=== PATIENT | male | born 1990 | race Caucasian/White ===

== ENCOUNTER 2023-08-06 20:57 | Emergency (ER) | payer OTHER, SELFPAY ==
[2023-08-06 21:00] VITALS: BP 128/71; PULSE 88; RESP 16; TEMP 36.7; O2SAT 97; BMI 24.4
--- NOTE | 2023-08-06 22:00 | ED.PSYCH ---
HPI - Psych General Chief Complaint: Psychiatric Symptoms Stated Complaint: mental crisis Time Seen by Provider: 08/06/23 21:25 Source: patient Mode of arrival: Ambulatory Limitations: no limitations History of Present Illness HPI Narrative: Patient is a 33-year-old male. No diagnosed mental health disorder. 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 Is is a [employer]. Has been at his current visit for greater than 1 year. He is here for evaluation of what he describes as a ?mental crisis? he states that ever since the beginning of the year when his child was ?born stillborn? he is had issues with anxiety and depression. These are not necessarily new issues for him as he has been dealing with these for while even before entering the however just become more pronounced since then. He has talked with his medical department and has seen online therapy but states he could not continue it because of his schedule at work. He is not tried to hurt himself but he states he occasionally has thoughts of hurting himself. He is no current plans. In route here in the emergency department today he states he is having both auditory and visual hallucinations. He states the visual hallucinations are ?movement? specifically out of the corner of his eye. He states that the auditory hallucinations are? telephone ringing? no voices. He did not try to hurt himself. He is not currently on any medicines. Back when he was in his mid teens he did try to hang himself. Obviously this was unsuccessful. He did not seek treatment afterwards. He states that his current son who was greater than 5 years old most likely has autism. Today things just seem to come to head as he is having financial issues, relationship issues with his , concerned about his son, the depression from the stillborn earlier this year. Review of Systems Psychiatric Psychiatric: Reports system reviewed and no additional complaints, except as documented Patient History Social History Smoking Status: Current every day smoker Smoking Status: Current every day smoker tobacco type: vaping Substance Use Type: does not use Exam Initial Vital Signs Initial Vital Signs: Vital Signs Temperature 98.0 F 08/06/23 21:00 Pulse Rate 88 08/06/23 21:00 Respiratory Rate 16 08/06/23 21:00 Blood Pressure 128/71 08/06/23 21:00 Pulse Oximetry 97 08/06/23 21:00 Oxygen Delivery Method Room Air 08/06/23 21:00 Const General: cooperative, comfortable and No ill appearing HENMT Head: normal to inspection and normocephalic Resp Effort & Inspection: normal respiratory effort Cardio Rate: regular rate Neuro General: patient alert, patient awake and moves all extremities Psych Other: Calm, cooperative, not suicidal, not homicidal, does have a flat affect. Course Orders Ordered: ED Orders 08/06/23 21:09 Consult to [facility] [place] - [employer] Stat Vital Signs Vital signs: Vital Signs - 8 hr 08/06/23 21:00 Temperature 98.0 F Pulse Rate 88 Respiratory Rate 16 Blood Pressure 128/71 Pulse Oximetry 97 Oxygen Delivery Method Room Air MDM - Psych MDM Narrative Medical decision making narrative: Patient is not clinically intoxicated. Has a GCS of 15. Alert and oriented x3. Is not suicidal. Not homicidal. Obviously is having quite a bit of anxiety based off of multiple stressors in his life. We discussed options at this point forward from the emergency department. We discussed admission to the hospital which I would recommend [facility] given his active duty status versus discharge home and following up with his medical department seeking outpatient treatment. Discussed the risks and benefits of each of these. I do not feel the patient would meet criteria for an involuntary admission. He states he would like to be discharged home. He stated that he would come back if his symptoms worsen. He was given return precautions. He expressed understanding and agreement. He will contact his medical department later this week to discuss outpatient follow-up. 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 You can return to the emergency department at any point for new or worsening symptoms. Stand Alone Forms: Patient Portal/API
== END 2023-08-06 22:41 | disposition home or self-care (01) ==
PROVIDERS: Emergency Provider Emergency Medicine
DX: F41.9 Anxiety disorder, unspecified (principal)
CPT/HCPCS: 99283